=== PATIENT | female | born 2000 | race Hispanic/Latino ===

== ENCOUNTER → 2021-08-04 | Outpatient (REF) | LOC: M PLAIMG 10:18 | PROVIDERS: ATTEND Internal Medicine | DX: R06.02 Shortness of breath (principal) ==

== ENCOUNTER → 2021-08-10 | Outpatient (CLI) | payer OTHER | LOC: M CARPUL 07:37 → EDUNIT# 10:30 | PROVIDERS: ATTEND Internal Medicine | DX: Z00.00 Encounter for general adult medical examination without abnormal findings (principal) ==

== ENCOUNTER 2021-11-02 11:18 | Emergency (ER) | payer OTHER ==
[~2021-11-02] VITALS: Ht 157.5 cm; Wt 60.3 kg
[2021-11-02 11:23] VITALS: BP 134/92
[2021-11-02] MEDS ORDERED: TRAZ1TAB14 PO (12:06)
[2021-11-02] MEDS ORDERED: SUMA100T2 PO (12:06)
[2021-11-02] MEDS ORDERED: AMIT150T PO (12:06)
[2021-11-02] MEDS ORDERED: PROP60TA14 PO (12:06)
[2021-11-02 12:56] LABS: BASO % 0.2 % (0.0-1.0); EOS % 0.3 % (0.0-3.0); HEMOGLOBIN 16.5 g/dl (12.0-15.5); LYMPH # 1.5 10^3/uL (1.5-5.0); MEAN CORPUSCULAR HEMOGLOBIN 29.4 pg (27.0-33.0); MEAN CORPUSCULAR VOLUME 89.1 fl (80.0-96.0); MONO # 0.8 10^3/uL (0.0-0.8); MONO % 7.2 % (2.0-8.0); NEUTROPHILS % 78.9 % (36.0-66.0); PLATELET COUNT, AUTOMATED 278 10^3/uL (150-450); RED BLOOD COUNT 5.61 10^6/uL (4.00-5.40); WHITE BLOOD COUNT 11.4 10^3/uL (4.0-10.0)
[2021-11-02 13:40] LABS: HCG, SERUM QUALITATIVE NEGATIVE (NEGATIVE)
[2021-11-02 14:21] LABS: ALBUMIN 4.5 GM/DL (3.2-5.2); ALT/SGPT 28 U/L (12-78); BILIRUBIN,DIRECT 0.2 MG/DL (0.0-0.2); BILIRUBIN,TOTAL 0.9 MG/DL (0.2-1.0); BLOOD UREA NITROGEN 10 MG/DL (7-18); CALCIUM LEVEL 9.9 MG/DL (8.5-10.1); CARBON DIOXIDE LEVEL 24 MEQ/L (21-32); CHLORIDE LEVEL 105 MEQ/L (98-107); CREATININE FOR GFR 0.96 MG/DL (0.55-1.30); GLOMERULAR FILTRATION RATE > 60.0 (>60); GLUCOSE, FASTING 105 MG/DL (70-100); LIPASE 88 U/L (73-393); SODIUM LEVEL 138 MEQ/L (136-145); TOTAL PROTEIN 8.1 GM/DL (6.4-8.2)
[2021-11-02] MEDS ORDERED: cefTRIAXone SOD 1GM VIAL (J0696 PER 250MG) IM ONE (14:35)
[2021-11-02] MEDS ORDERED: LIDOCAINE 1% SDV 5ML VIAL DILUENT ONE (14:35)
[2021-11-02] MEDS ORDERED: SULF1TAB23 PO (14:36)
== END 2021-11-02 14:57 | disposition home or self-care (01) ==
LOC: M ED 11:18
DX: N39.0 Urinary tract infection, site not specified (principal)
CPT/HCPCS: 36415; 80048; 80076; 81001; 83690; 84703; 85025; 87186; 96372; 99283; J0696